=== PATIENT | female | born 1985 | race African-American/Black ===

== ENCOUNTER 2024-07-24 15:10 | Emergency (ER) | payer MEDICAID ==
[~2024-07-24] VITALS: Ht 177.8 cm; Wt 85.0 kg
[2024-07-24 15:15] VITALS: O2SAT 99
[2024-07-24 16:07] LABS: HEMATOCRIT. 26.4 % (36.0-48.0); HEMOGLOBIN. 7.9 g/dL (12.0-16.0); MEAN CORPUSCULAR HEMOGLOBIN 16.5 pg (28.0-32.0); MEAN CORPUSCULAR HGB CONC 29.9 g/dL (31.0-37.0); MEAN PLATELET VOLUME 8.5 fl (7.4-10.4); PLATELET 550 x1000/uL (130-400); RED CELL DISTRIBUTION WIDTH 22.1 % (11.6-14.6)
[2024-07-24 16:08] LABS: DIFFERENTIAL COMMENT 1
[2024-07-24 16:16] LABS: CHLORIDE 111 mEq/L (98-107); POTASSIUM 3.6 mEq/L (3.5-5.1); SODIUM 142 mEq/L (136-145)
[2024-07-24 16:17] LABS: CALCIUM 9.4 mg/dL (8.7-10.4); CARBON DIOXIDE 25 mEq/L (21-32)
[2024-07-24 16:20] LABS: HCG SCREEN NEGATIVE
[2024-07-24 16:22] LABS: GLUCOSE 94 mg/dL (70-105); UREA NITROGEN BLOOD 15 mg/dL (9-23)
[2024-07-24 16:23] LABS: HYPOCHROMASIA 2+; MICROCYTOSIS 3+; OVALOCYTES 1+; PLATELET ESTIMATE INCREASED
[2024-07-24 16:24] LABS: CREATINE KINASE 200 IU/L (34-145)
[2024-07-24 16:31] LABS: TROPONIN I HIGH SENSITIVITY < 4 ng/L (3.0-34)
[2024-07-24] MEDS: SODIUM CHLORIDE 0.9% 1,000 ML IV ONE (16:55)
[2024-07-24 16:57] VITALS: BP 131/79; PULSE 93; RESP 16; TEMP 36.7; O2SAT 99
== END 2024-07-24 17:05 | disposition home or self-care (01) ==
LOC: ER 15:10
DX: T67.5XXA Heat exhaustion, unspecified, initial encounter (principal); D64.9 Anemia, unspecified; Z79.899 Other long term (current) drug therapy; X58.XXXA Exposure to other specified factors, initial encounter; Y93.02 Activity, running; Y92.89 Other specified places as the place of occurrence of the external cause; Y99.8 Other external cause status
CPT/HCPCS: 80048; 82550; 84703; 83735; 85025; 85610; 86850; 86900; 86901; 84484; 36415; 93005; 99284; J7030; Z7610